=== PATIENT | female | born 1960 | race Caucasian/White ===

== ENCOUNTER 2021-04-06 07:21 | Emergency (ER) | payer SELFPAY ==
[~2021-04-06] VITALS: Ht 165.1 cm; Wt 60.0 kg
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
--- NOTE | 2021-04-06 07:31 | NUR ---
ER NAVEEN SWEENEY AT BEDSIDE FOR EVAL
[2021-04-06] MEDS ORDERED: KETOROLAC 30 MG/1 ML ONE (08:19)
--- NOTE | 2021-04-06 08:25 | NUR ---
PT RESTING IN BED, CALL LIGHT IN REACH. MEDICATED ORDERED
[2021-04-06 08:26] VITALS: BP 125/79
[2021-04-06] MEDS ORDERED: PLEASE ENTER ALLERGIES MC SCH (08:30)
[2021-04-06] MEDS ORDERED: KETOROLAC 30 MG/1 ML IVPush ONE (08:30)
--- NOTE | 2021-04-06 09:22 | NUR ---
DISCHARGE INSTRUCTIONS REVIEWED
== END 2021-04-06 09:24 | disposition home or self-care (01) ==
LOC: ED 08:36
DX: S00.33XA Contusion of nose, initial encounter (principal); M54.2 Cervicalgia; F17.210 Nicotine dependence, cigarettes, uncomplicated; Y04.8XXA Assault by other bodily force, initial encounter; Y93.89 Activity, other specified; Y92.009 Unspecified place in unspecified non-institutional (private) residence as the place of occurrence of the external cause; Y99.8 Other external cause status
CPT/HCPCS: 70486; 72125; 96374; 99285; J1885